=== PATIENT | female | born 1955 | race Caucasian/White ===

== ENCOUNTER 2019-01-24 21:11 | Emergency (ER) | payer SELFPAY ==
[2019-01-24 22:01] LABS: Absolute Monocytes 0.4 K/uL (0.1-1.3); Absolute Neutrophil 3.3 K/uL (1.8-8.0); Basophils % 0.8 % (0-1.3); Eosinophils % 3.5 % (0-4.4); Hematocrit 45.5 % (36.0-45.0); MPV 8.4 fL (7.6-11.3); Monocytes % 5.5 % (3.3-12.3); RBC Red Blood Cell Count 4.88 M/uL (3.86-4.86)
[2019-01-24] MEDS ORDERED: LEVALBUTEROL 1.25 MG/3 ML NEB ONE (22:03)
[2019-01-24 22:07] LABS: Protime INR 0.92
--- NOTE | 2019-01-24 22:13 | RAD REPORT ---
EXAM DESCRIPTION: RAD - Chest Single View - 01/24/2019 10:07 pm CLINICAL HISTORY: DYSPNEA Chest pain. COMPARISON: Chest Single View dated 09/27/2017; Chest Single View dated 09/26/2017; Chest Single Vie w dated 04/03/2017; CHEST SINGLE VIEW dated 04/26/2013 FINDINGS: Portable technique limits examination quality. The lungs are grossly clear. The heart is normal in size. No displaced fractures. IMPRESSION: No acute intrathoracic process suspected.
[2019-01-24 22:30] LABS: ALT/SGPT 108 U/L (12-78); AST/SGOT 132 U/L (15-37); Alkaline Phosphatase 102 U/L (45-117); BUN Blood Urea Nitrogen 11 mg/dL (7-18); Bicarbonate 23 mmol/L (21-32); Bilirubin Direct 0.1 mg/dL (0-0.2); Bilirubin Total 0.4 mg/dL (0.2-1.0); Glucose Level 143 mg/dL (74-106); NT PRO-BNP 84 pg/mL (<125); Potassium 4.1 mmol/L (3.5-5.1); Protein, Total 7.2 g/dL (6.4-8.2); Sodium Level 143 mmol/L (136-145); Troponin (Emerg Dept Use Only) < 0.02 ng/mL (0.0-0.045)
[2019-01-24] MEDS ORDERED: LORazepam 2 MG/ML VIAL ONE (22:43)
[2019-01-24 22:50] LABS: Barbiturates NEGATIVE (NEGATIVE); Benzodiazepines NEGATIVE (NEGATIVE); Cocaine NEGATIVE (NEGATIVE); METHAMPHETAM NEGATIVE (NEGATIVE); Methadone NEGATIVE (NEGATIVE); Opiates NEGATIVE (NEGATIVE); Phencyclidine NEGATIVE (NEGATIVE); THC Cannibis NEGATIVE (NEGATIVE)
[2019-01-24] MEDS ORDERED: NICOTINE 21 MG/PAT TD ONE (23:40)
[2019-01-24 23:44] LABS: Urine Blood TRACE (NEG); Urine Glucose NEGATIVE (NEG); Urine Protein NEGATIVE (NEG); Urine Specific Gravity <1.005 (1.005-1.030); Urine pH 5.5 (5.0-7.0)
[2019-01-25] MEDS ORDERED: NA CHLORIDE 0.9% 1,000 ML ONE ×2 (00:21→01:15)
[2019-01-25] MEDS ORDERED: LORazepam 2 MG/ML VIAL ONE ×2 (00:21→04:30)
[2019-01-25] MEDS ORDERED: THIAMINE 200 MG/2 ML INJ ONE (01:15)
[2019-01-25] MEDS ORDERED: DIPHENHYDRAMINE 50 MG/ML VIAL ONE (01:15)
[2019-01-25] MEDS ORDERED: MULTIVITAMINS 10 ML VIAL (INJ) IV ONE (01:17)
[2019-01-25] MEDS ORDERED: FOLIC ACID 5 MG/ML VIAL ONE (01:18)
[2019-01-25] MEDS ORDERED: IBUPROFEN 400 MG TAB ONE (09:42)
[2019-01-25] MEDS ORDERED: IBUPROFEN 200 MG TAB PO ONE (09:43)
[2019-01-25] MEDS ORDERED: LORAZEPAM 1 MG TABLET ONE ×2 (10:18→19:54)
--- NOTE | 2019-01-25 10:45 | EKG ---
Test Date: 2019-01-24 Test Time: 21:38:50 Director [facility]: CAROLINE MEASUREMENT RESULTS: Intervals: Rate: 96 SC: 156 QRSD: 108 QT: 362 QTc: 457 Rodney: P: 77 SC: 156 QRS: 51 T: 28 INTERPRETIVE STATEMENTS: Normal sinus rhythm Low voltage QRS Cannot rule out Anterior infarct, age undetermined Abnormal ECG Compared to ECG 09/26/2017 17:24:52 Low QRS voltage now present Sinus tachycardia no longer present Ventricular premature complex(es) no longer present Myocardial infarct finding still present Electronically Signed On 01-25-19 10:43:31 CDT by Danielito Schneider
[2019-01-26] MEDS ORDERED: ONDANSETRON 4 MG/2 ML VIAL ONE (07:54)
[2019-01-26] MEDS ORDERED: IBUPROFEN 200 MG TAB PO ONE (07:55)
[2019-01-26] MEDS ORDERED: IBUPROFEN 400 MG TAB ONE (07:55)
--- NOTE | 2019-01-26 08:03 | EDPHYS ---
Physician Documentation [facility] Name: Liz Perez Age: 63 yrs Sex: Female : 1955 Arrival Date: 01/24/2019 Time: 21:13 Bed 17 Private MD: ED Physician Leonel Ureña HPI: 01/24 21:36 This 63 yrs old Female presents to ER via Ambulatory with complaints of rn Breathing Difficulty, Suicidal Ideation. 21:36 The patient has shortness of breath at rest, with light activity. Onset: The rn symptoms/episode began/occurred at an unknown time. Duration: The symptoms are intermittent. The patient's shortness of breath is aggravated by exertion. Associated signs and symptoms: Pertinent positives: This patient does not have any pertinent positive signs or symptoms associated with shortness of breath. Pertinent negatives: non-productive cough, productive cough, fever, hemoptysis. Severity of symptoms: At their worst the symptoms were mild in the emergency department the symptoms are unchanged. The patient has experienced similar episodes in the past. Reports here for 2 reasons, reports increased sob of COPD and "heart patient", also reports fired last week and having thoughts of hurting herself. Has attempted to harm herself in past, states if she had a gun and a bullet would shoot herself. Reports stopped all of her medication last week because of financial issues, and feels her heart pounding. . Historical: - Allergies: 01/25 10:05 No Known Allergies; jl7 - Home Meds: 01/24 21:36 Albuterol Inhl [Active]; atorvastatin 40 mg Oral tab 1 tab once daily [Active]; tl2 clopidogrel 75 mg Oral tab 1 tab once daily [Active]; lisinopril 20 mg Oral tab 1 tab once daily [Active]; metoprolol tartrate 50 mg Oral tab 1 tab 2 times per day [Active]; - PMHx: 21:36 COPD; Hypertension; DE; tl2 - Immunization history:: Adult Immunizations up to date. - Social history:: Smoking status: Patient uses tobacco products. - Ebola Screening: : No symptoms or risks identified at this time. - Family history:: not pertinent. - Hospitalizations: : No recent hospitalization is reported. ROS: 21:36 Constitutional: Negative for fever, chills, and weight loss, Eyes: Negative for injury, rn pain, redness, and discharge, Neck: Negative for injury, pain, and swelling, Cardiovascular: Negative for chest pain, palpitations, and edema, Respiratory: + sob Abdomen/GI: Negative for abdominal pain, nausea, vomiting, diarrhea, and constipation, MS/Extremity: Negative for injury and deformity, Skin: Negative for injury, rash, and discoloration, Neuro: Negative for headache, weakness, numbness, tingling, and seizure. Exam: 21:36 Constitutional: This is a well developed, well nourished patient who is awake, alert, rn tearful Head/Face: Normocephalic, atraumatic. Eyes: tearful ENT: MMM, no stridor Cardiovascular: tachycardic, regular, no murmur Respiratory: + mild tachypnea, faint wheezing, no retractions, also crying during exam Skin: Warm, dry MS/ Extremity: Pulses equal, no cyanosis. Neurovascular intact. Full, normal range of motion. Neuro: Awake and alert, GCS 15, oriented to person, place, time, and situation. Motor strength 5/5 in all extremities. Sensory grossly intact. Cerebellar exam normal. Vital Signs: 21:36 BP 157 / 113; Pulse 127; Resp 26; Temp 98.2(O); Pulse Ox 94% on R/A; Weight 79.38 kg; tl2 Height 5 ft. 5 in. (165.10 cm); Pain 6/10; 21:55 BP 153 / 87; Pulse 97; Resp 22; Pulse Ox 97% on R/A; mt 22:08 BP 131 / 85; Pulse 94; Resp 20; Pulse Ox 100% on Nebulizer Mask; mt 03/21 00:28 BP 129 / 85; Pulse 102; Resp 20; Pulse Ox 95% on R/A; mt 04:15 BP 152 / 79; Pulse 101; Resp 17 S; Pulse Ox 97% on R/A; Pain 0/10; jd3 07:00 BP 149 / 73; Pulse 99; Resp 18; Temp 97.8(TE); Pulse Ox 98% on R/A; mh5 11:42 BP 134 / 76; Pulse 84; Resp 18; Temp 98.1(O); Pulse Ox 96% on R/A; mh5 15:57 BP 159 / 74; Pulse 102; Resp 20; Temp 98.5(O); Pulse Ox 97% on R/A; mh5 20:15 BP 134 / 73; Pulse 89; Resp 19; Pulse Ox 99% on R/A; mt 01/26 00:22 BP 179 / 84; Pulse 92; Resp 18; Pulse Ox 99% on R/A; mt 04:37 BP 157 / 93; Pulse 82; Resp 16; Pulse Ox 97% on R/A; tl2 07:29 BP 160 / 93; Pulse 90; Resp 16; Temp 98.3; Pulse Ox 96% ; Pain 0/10; sv 10:25 BP 160 / 87; Pulse 90; Resp 16; Temp 97.9; Pulse Ox 96% ; sv 01/24 21:36 Body Mass Index 29.12 (79.38 kg, 165.10 cm) tl2 MDM: 01/24 21:19 Patient medically screened. rn 01/25 02:31 ED course: Plan is going to ultimately be [facility] evaluation and likely transfer rn given patient adamant about hurting herself. States "its going to happen". 07:30 Data reviewed: vital signs, nurses notes, lab test result(s). ED course: The patient is kdr sleeping comfortably at this time. Has not required any intervention. Will redraw ETOH at 8:30 and hopefully be able to proceed with disposition at that time. 08:36 ED course: The patient is currently awake and alert. She does not remember coming to kdr the hospital or being suicidal with a plan to shoot herself. She had stated to the prior practitioner that she would harm herself if discharged. She currently is not as resolute about self harm. She has two sons, once from ETOH and the other reportedly in denial about his drinking problem. She recently lost her job and has multiple issues with daily living that are causing her to be more depressed than usual and she is not on any anti-depressant medication. 19:01 ED course: The patient continues to be stable in the ED. She was given Ativan PO once kdr during the shift but was otherwise not requiring intervention . ED course: When [facility] evaluated the patient, she indicated that her only way out of her current situation was to harm herself. 01/24 21:35 Order name: CBC with Diff; Complete Time: 22:19 rn 01/24 21:35 Order name: Basic Metabolic Panel; Complete Time: 22:37 rn 01/24 21:35 Order name: N-Terminal Pro-brain Natriuretic Peptide; Complete Time: 22:37 rn 01/24 21:35 Order name: Troponin (emerg Dept Use Only); Complete Time: 22:37 rn 01/24 21:35 Order name: Acetaminophen; Complete Time: 22:37 01/24 21:35 Order name: ETOH Level; Complete Time: 22:37 01/24 21:35 Order name: Hepatic Function; Complete Time: 22:37 rn 01/24 21:35 Order name: PT-INR; Complete Time: 22:19 rn 01/24 21:35 Order name: Ptt, Activated; Complete Time: 22:19 rn 01/24 21:35 Order name: Salicylate; Complete Time: 22:37 01/24 21:35 Order name: Urine Drug Screen; Complete Time: 22:59 01/24 23:14 Order name: Urine Dipstick--Ancillary (enter results); Complete Time: 23:49 [facility] 01/25 04:28 Order name: ETOH Level: draw at 0530; Complete Time: 06:29 rn 01/25 07:22 Order name: ETOH Level: Redraw in 2 hours; Complete Time: 19:41 [facility] 01/24 21:35 Order name: XRAY Chest (1 view); Complete Time: 22:19 01/25 10:24 Order name: ETOH Level; Complete Time: 19:41 01/24 21:35 Order name: IV Start; Complete Time: 21:56 01/24 21:35 Order name: EKG; Complete Time: 21:35 01/24 21:35 Order name: EKG - Nurse/Tech; Complete Time: 21:55 01/24 21:35 Order name: Labs collected and sent; Complete Time: 21:55 01/24 21:35 Order name: Urine Dipstick-Ancillary (obtain specimen); Complete Time: 00:31 01/25 07:17 Order name: Diet Regular; Complete Time: 07:17 5 01/25 10:34 Order name: Diet Regular; Complete Time: 10:34 5 01/25 15:48 Order name: Diet Regular; Complete Time: 15:49 5 Administered Medications: 01/24 22:16 Drug: Xopenex (3) 1.25 mg Route: Inhalation; jd3 01/25 07:00 Follow up: Response: No adverse reaction jl7 01/24 22:37 Drug: Ativan 1 mg Route: IVP; Site: right wrist; tl2 23:33 Follow up: Response: No adverse reaction jd3 23:32 Drug: Nicoderm CQ 21 mg/24 hr 21 mg {Note: right upper arm.} Route: Transdermal; Site: jd3 affected area; 01/25 07:00 Follow up: Response: No adverse reaction jl7 00:16 Drug: NS 0.9% 1000 ml Route: IV; Rate: 1000 ml; Site: right forearm; jd3 01:57 Follow up: Response: No adverse reaction; IV Status: Completed infusion; IV Intake: jd3 1000ml 00:16 Drug: Ativan 1 mg Route: IVP; Site: right forearm; jd3 01:57 Follow up: Response: No adverse reaction jd3 01:22 Drug: Benadryl 50 mg Route: IVP; Site: right forearm; jd3 02:20 Follow up: Response: No adverse reaction jd3 01:23 Drug: Banana Bag - (NS 0.9% 1000 ml, foLIC Acid 1 mg, Thiamine 100 mg, Multivitamin 1 jd3 amp) Route: IV; Rate: calculated rate; Site: right forearm; 06:56 Follow up: Response: No adverse reaction; IV Status: Completed infusion jd3 04:32 Drug: Ativan 1 mg Route: IVP; Site: right forearm; jd3 05:30 Follow up: Response: No adverse reaction jd3 09:44 Drug: Motrin 600 mg Route: PO; jl7 10:40 Follow up: Response: No adverse reaction jl7 10:09 Drug: Ativan 1 mg Route: PO; jl7 11:00 Follow up: Response: No adverse reaction jl7 19:46 Drug: Ativan 1 mg Route: PO; tl2 01/26 08:00 Drug: Zofran 4 mg Route: IVP; Site: right forearm; sv 08:53 Follow up: Response: No adverse reaction; Nausea is decreased sv 08:53 Drug: Motrin 600 mg Route: PO; sv 09:30 Follow up: Response: No adverse reaction sv 10:36 Drug: Tylenol 650 mg Route: PO; sv 10:36 Drug: Lisinopril 20 mg Route: PO; sv 10:36 Drug: Metoprolol TARTRATE (Lopressor) 50 mg Route: PO; sv Disposition: 01/26/19 08:00 Transfer ordered to Psych Facility. Diagnosis are Suicidal ideations, Major depressive disorder, recurrent, Tobacco abuse counseling, Alcohol abuse with intoxication - resolved. - Reason for transfer: Higher level of care. - Accepting physician is to psych. - Condition is Stable. - Problem is new. - Symptoms have improved. Signatures: Dispatcher [employer] Yasemin Steele RN RN sv Anderson, Corey, MD MD cha Rittger, Kevin, MD MD kdr Williams, Irene RN RN iw Mike Hubbard MD MD rn Knox, Taylor, RN RN tl2 Michaelle Mckeon RN RN jl7 Bridger Mckenzie RN RN jd3 Corrections: (The following items were deleted from the chart) 09:01 08:00 01/26/2019 08:00 Transfer ordered to Psych Facility. Diagnosis is Suicidal elisa ideations; Bipolar disorder. Reason for transfer: Higher level of care. Accepting physician is to psych. Condition is Stable. Problem is new. Symptoms have improved. elisa 09:03 09:01 01/26/2019 08:00 Transfer ordered to Psych Facility. Diagnosis is Suicidal elisa ideations; Major depressive disorder, recurrent. Reason for transfer: Higher level of care. Accepting physician is to psych. Condition is Stable. Problem is new. Symptoms have improved. elisa 11:33 09:03 01/26/2019 08:00 Transfer ordered to Psych Facility. Diagnosis is Suicidal iw ideations; Major depressive disorder, recurrent; Tobacco abuse counseling; Alcohol abuse with intoxication - resolved. Reason for transfer: Higher level of care. Accepting physician is to psych. Condition is Stable. Problem is new. Symptoms have improved. elisa
--- NOTE | 2019-01-26 08:03 | ER ---
Nurse's Notes [facility] Name: Liz Perez Age: 63 yrs Sex: Female : 1955 Arrival Date: 01/24/2019 Time: 21:13 Bed 17 Private MD: Diagnosis: Suicidal ideations;Major depressive disorder, recurrent;Tobacco abuse counseling;Alcohol abuse with intoxication-resolved Presentation: 01/24 21:33 Presenting complaint: Patient states: PT is very anxious and stressed, states she was tl2 fired from her job over a week ago. She came here because she states "I know I'm going to , I just don't know how." Reports previous thoughts of suicide and previous attempts. Pt is crying in triage. Transition of care: patient was not received from another setting of care. Onset of symptoms was January 15, 2019. Risk Assessment: Do you want to hurt yourself or someone else? Patient reports desire/thoughts of hurting themselves or someone else. Provider notified. Initial Sepsis Screen: Does the patient meet any 2 criteria? No. Patient's initial sepsis screen is negative. Does the patient have a suspected source of infection? No. Patient's initial sepsis screen is negative. Care prior to arrival: None. 21:33 Method Of Arrival: Ambulatory tl2 21:33 Acuity: MICHELET 2 tl2 Triage Assessment: 21:36 General: Appears distressed, uncomfortable, Behavior is agitated, crying. Pain: tl2 Complains of pain in right shoulder. Respiratory: Reports shortness of breath at rest Onset: The symptoms/episode began/occurred today, the patient has mild shortness of breath. Historical: - Allergies: 01/25 10:05 No Known Allergies; jl7 - Home Meds: 01/24 21:36 Albuterol Inhl [Active]; atorvastatin 40 mg Oral tab 1 tab once daily [Active]; tl2 clopidogrel 75 mg Oral tab 1 tab once daily [Active]; lisinopril 20 mg Oral tab 1 tab once daily [Active]; metoprolol tartrate 50 mg Oral tab 1 tab 2 times per day [Active]; - PMHx: 21:36 COPD; Hypertension; KS; tl2 - Immunization history:: Adult Immunizations up to date. - Social history:: Smoking status: Patient uses tobacco products. - Ebola Screening: : No symptoms or risks identified at this time. - Family history:: not pertinent. - Hospitalizations: : No recent hospitalization is reported. Screenin:37 Abuse screen: Denies threats or abuse. Nutritional screening: No deficits noted. tl2 Tuberculosis screening: No symptoms or risk factors identified. Fall Risk Gait- Weak (10 pts.). Assessment: 21:35 General: Appears uncomfortable, Behavior is anxious, crying, inappropriate for age, jd3 restless. Pain: Denies pain. Neuro: Level of Consciousness is awake, alert, confused, Oriented to person, place. Cardiovascular: Heart tones present Capillary refill < 3 seconds Patient's skin is warm and dry. Rhythm is regular. Respiratory: Reports shortness of breath Airway is patent Respiratory effort is even, unlabored, Respiratory pattern is regular, symmetrical, Breath sounds are clear bilaterally. GI: No signs and/or symptoms were reported involving the gastrointestinal system. : No signs and/or symptoms were reported regarding the genitourinary system. EENT: No signs and/or symptoms were reported regarding the EENT system. Derm: Skin is intact, Skin is dry, Skin is normal, Skin temperature is warm. Musculoskeletal: Circulation, motion, and sensation intact. Range of motion: intact in all extremities. 22:30 Reassessment: Patient appears in no apparent distress at this time. Patient and/or jd3 family updated on plan of care and expected duration. Pain level reassessed. Patient states feeling better. 23:00 Reassessment: Patient appears in no apparent distress at this time. No changes from jd3 previously documented assessment. Patient and/or family updated on plan of care and expected duration. Pain level reassessed. 01/25 00:00 Reassessment: Patient appears in no apparent distress at this time. No changes from jd3 previously documented assessment. Patient and/or family updated on plan of care and expected duration. Pain level reassessed. 01:00 Reassessment: Patient appears in no apparent distress at this time. No changes from jd3 previously documented assessment. Patient and/or family updated on plan of care and expected duration. Pain level reassessed. provider at bedside discussing plan of care. 02:00 Reassessment: Patient appears in no apparent distress at this time. No changes from jd3 previously documented assessment. Patient and/or family updated on plan of care and expected duration. Pain level reassessed. pt assisted into a recliner chair. 03:00 Reassessment: Patient appears in no apparent distress at this time. Patient and/or jd3 family updated on plan of care and expected duration. Pain level reassessed. pt resting in recliner chair with eyes closed, even and unlabored respirations, no signs of distress noted at this time. 04:00 Reassessment: Patient appears in no apparent distress at this time. No changes from jd3 previously documented assessment. Patient and/or family updated on plan of care and expected duration. Pain level reassessed. 04:30 Reassessment: Patient appears in no apparent distress at this time. Patient and/or jd3 family updated on plan of care and expected duration. Pain level reassessed. pt with anxiety, moved from chair to bed with assistance, provider notified, new orders received. 05:00 Reassessment: Patient appears in no apparent distress at this time. Patient and/or jd3 family updated on plan of care and expected duration. Pain level reassessed. pt resting in bed with eyes closed, even and unlabored respirations, no distress noted at this time. 06:00 Reassessment: Patient appears in no apparent distress at this time. Patient and/or jd3 family updated on plan of care and expected duration. Pain level reassessed. pt sitting in bed eating fruit cup. 07:00 Reassessment: Patient appears in no apparent distress at this time. Patient and/or jd3 family updated on plan of care and expected duration. Pain level reassessed. pt resting in bed with eyes closed, even and unlabored respirations, no distress noted at this time. 07:15 Reassessment: Pt laying in bed with eyes closed, respirations even and unlabored, no jl7 signs of distress noted at this time. 08:25 Reassessment: Dr. Hammer at bedside discussing plan of care. jl7 09:30 Reassessment: Patient appears in no apparent distress at this time. Patient and/or jl7 family updated on plan of care and expected duration. Pain level reassessed. Pt c/o back pain, rated 6/10, ERP notified, see MAR for orders. 10:10 Reassessment: Pt with mild tremors noted, requesting something for anxiety, ERD jl7 notified, see MAR for orders. 11:30 Reassessment: Patient appears in no apparent distress at this time. Patient and/or jl7 family updated on plan of care and expected duration. Pain level reassessed. Patient is alert, oriented x 3, equal unlabored respirations, skin warm/dry/pink. Patient states symptoms have improved. 12:30 Reassessment: Patient appears in no apparent distress at this time. No changes from jl7 previously documented assessment. Patient and/or family updated on plan of care and expected duration. Pain level reassessed. Patient is alert, oriented x 3, equal unlabored respirations, skin warm/dry/pink. 13:30 Reassessment: Patient appears in no apparent distress at this time. Patient and/or jl7 family updated on plan of care and expected duration. Pain level reassessed. Patient is alert, oriented x 3, equal unlabored respirations, skin warm/dry/pink. 14:30 Reassessment: Patient appears in no apparent distress at this time. Patient and/or jl7 family updated on plan of care and expected duration. Pain level reassessed. Patient is alert, oriented x 3, equal unlabored respirations, skin warm/dry/pink. 15:30 Reassessment: Patient appears in no apparent distress at this time. Patient and/or jl7 family updated on plan of care and expected duration. Pain level reassessed. Patient is alert, oriented x 3, equal unlabored respirations, skin warm/dry/pink. 19:35 General: Appears in no apparent distress. comfortable, Behavior is cooperative, tl2 anxious, restless. Pain: Denies pain. Neuro: Level of Consciousness is awake, alert. 19:35 General: pt reports feeling "extremely anxious" MD notified, new order see MAR. tl2 Cardiovascular: Denies chest pain. Respiratory: Airway is patent Respiratory effort is even, unlabored, Respiratory pattern is regular, symmetrical. : No signs and/or symptoms were reported regarding the genitourinary system. Derm: Skin temperature is warm. 20:30 Reassessment: Patient appears in no apparent distress at this time. Patient and/or tl2 family updated on plan of care and expected duration. Pain level reassessed. 21:30 Reassessment: Patient appears in no apparent distress at this time. Patient is alert, tl2 oriented x 3, equal unlabored respirations, skin warm/dry/pink. 23:30 Reassessment: Patient appears in no apparent distress at this time. Patient and/or tl2 family updated on plan of care and expected duration. Pain level reassessed. 01/26 00:30 Reassessment: Patient appears in no apparent distress at this time. Patient is alert, tl2 oriented x 3, equal unlabored respirations, skin warm/dry/pink. 01:00 Reassessment: Patient appears in no apparent distress at this time. Patient and/or tl2 family updated on plan of care and expected duration. Pain level reassessed. 02:00 Reassessment: Patient appears in no apparent distress at this time. pt appears to be tl2 sleeping, RR even and unlabored. 03:00 Reassessment: Patient appears in no apparent distress at this time. Patient and/or tl2 family updated on plan of care and expected duration. Pain level reassessed. 04:36 Reassessment: Pt able to perform own ADLs, is ambulatory without assist. ea 05:30 Reassessment: Patient appears in no apparent distress at this time. Patient and/or tl2 family updated on plan of care and expected duration. Pain level reassessed. 06:44 Reassessment: Patient appears in no apparent distress at this time. Patient and/or tl2 family updated on plan of care and expected duration. Pain level reassessed. awaiting breakfast tray. 07:33 General: Appears in no apparent distress. comfortable, Behavior is calm, cooperative, sv appropriate for age. Pain: Denies pain. Neuro: Level of Consciousness is awake, alert, obeys commands, Oriented to person, place, time, situation, Moves all extremities. Full function Speech is normal. Respiratory: Airway is patent Respiratory effort is even, unlabored, Respiratory pattern is regular, symmetrical. Derm: Skin is pink, warm \\T\\ dry. 09:27 Reassessment: Patient appears in no apparent distress at this time. Patient and/or sv family updated on plan of care and expected duration. Pain level reassessed. Patient is alert, oriented x 3, equal unlabored respirations, skin warm/dry/pink. Pt appears to be resting with eyes closed, no distress noted. 10:27 Reassessment: Report given to Ricarda at [facility]. sv 11:25 Reassessment: Patient appears in no apparent distress at this time. No changes from sv previously documented assessment. Patient and/or family updated on plan of care and expected duration. Pain level reassessed. Patient is alert, oriented x 3, equal unlabored respirations, skin warm/dry/pink. Psych: 01/24 21:37 Subjective: Patient's mood is sad, hopeless, Delusions are denied, Hallucinations are tl2 denied Having thoughts of suicide. Plan for suicide is states if she had a gun with a bullet that would work. Objective: Patient is hostile, irritable, restless, Speech is rambling, Affect is appropriate. Interventions: Removed personal items and placed in bag. Patient placed in hospital gown. Suicide Risk Assessment: Sad Person Scale: Sex of patient: Female: Score 0 points. Age of patient: Score 0 point if patient falls outside of specified age parameters. Depression: Score 1 point if signs of depression are present. Previous Attempt: Score 1 point if patient has previously attempted suicide. Substance Abuse: Score 1 point if patient abuses alcohol or drugs. Rational Thinking: Score 1 point if patient is lacking rational thinking. Social Support: Score 1 point if social support is lacking and/or unavailable. Organized Plan: Score 1 point if patient had a plan in place. Relationship: Score 1 point if patient is , , , or for a single male Chronic Sickness: Score 1 point if patient has illness, chronic, debilitating, or severe. TOTAL POINTS: If total points are 7-10, the proposed clinical action is to hospitalize or commit. Implement suicide precautions. Safety Checks: Personal items have been removed. Door is open. No visitors are present at this time. Patient uses. Vital Signs: 21:36 BP 157 / 113; Pulse 127; Resp 26; Temp 98.2(O); Pulse Ox 94% on R/A; Weight 79.38 kg; tl2 Height 5 ft. 5 in. (165.10 cm); Pain 6/10; 21:55 BP 153 / 87; Pulse 97; Resp 22; Pulse Ox 97% on R/A; mt 22:08 BP 131 / 85; Pulse 94; Resp 20; Pulse Ox 100% on Nebulizer Mask; mt 01/25 00:28 BP 129 / 85; Pulse 102; Resp 20; Pulse Ox 95% on R/A; mt 04:15 BP 152 / 79; Pulse 101; Resp 17 S; Pulse Ox 97% on R/A; Pain 0/10; jd3 07:00 BP 149 / 73; Pulse 99; Resp 18; Temp 97.8(TE); Pulse Ox 98% on R/A; mh5 11:42 BP 134 / 76; Pulse 84; Resp 18; Temp 98.1(O); Pulse Ox 96% on R/A; mh5 15:57 BP 159 / 74; Pulse 102; Resp 20; Temp 98.5(O); Pulse Ox 97% on R/A; mh5 20:15 BP 134 / 73; Pulse 89; Resp 19; Pulse Ox 99% on R/A; mt 01/26 00:22 BP 179 / 84; Pulse 92; Resp 18; Pulse Ox 99% on R/A; mt 04:37 BP 157 / 93; Pulse 82; Resp 16; Pulse Ox 97% on R/A; tl2 07:29 BP 160 / 93; Pulse 90; Resp 16; Temp 98.3; Pulse Ox 96% ; Pain 0/10; sv 10:25 BP 160 / 87; Pulse 90; Resp 16; Temp 97.9; Pulse Ox 96% ; sv 03 21:36 Body Mass Index 29.12 (79.38 kg, 165.10 cm) tl2 ED Course: 01/24 21:13 Patient arrived in ED. ds1 21:19 Mike Hubbard MD is Attending Physician. rn 21:35 Triage completed. tl2 21:36 Arm band placed on right wrist. tl2 21:37 Patient has correct armband on for positive identification. Bed in low position. Call tl2 light in reach. Side rails up X2. 21:45 Safety checks: Items removed: yes. Door open/sign placed on door: yes. Family/friend mt present: no. Sitter present: Yes. 22:00 Safety checks: Items removed: yes. Door open/sign placed on door: yes. Family/friend mt present: no. Sitter present: Yes. 22:05 XRAY Chest (1 view) In Process Unspecified. EDMS 22:15 Safety checks: Items removed: yes. Door open/sign placed on door: yes. Family/friend mt present: no. Sitter present: Yes. 22:16 Bridger Mckenzie RN is Primary Nurse. jd3 22:30 Safety checks: Items removed: yes. Door open/sign placed on door: yes. Family/friend mt present: no. Sitter present: Yes. 22:45 Safety checks: Items removed: yes. Door open/sign placed on door: yes. Family/friend mt present: no. Sitter present: Yes. 23:00 Safety checks: Items removed: yes. Door open/sign placed on door: yes. Family/friend mt present: no. Sitter present: Yes. 23:15 Safety checks: Items removed: yes. Door open/sign placed on door: yes. Family/friend mt present: no. Sitter present: Yes. 23:30 Safety checks: Items removed: yes. Door open/sign placed on door: yes. Family/friend mt present: no. Sitter present: Yes. 23:45 Safety checks: Items removed: yes. Door open/sign placed on door: yes. Family/friend mt present: no. Sitter present: Yes. 01/25 00:00 Safety checks: Items removed: yes. Door open/sign placed on door: yes. Family/friend mt present: no. Sitter present: Yes. 00:15 Safety checks: Items removed: yes. Door open/sign placed on door: yes. Family/friend mt present: no. Sitter present: Yes. 00:30 Safety checks: Items removed: yes. Door open/sign placed on door: yes. Family/friend mt present: no. Sitter present: Yes. 03:18 Safety checks: Items removed: yes. Door open/sign placed on door: Patient placed in ag4 hallway bed. Family/friend present: no. Sitter present: Yes. Patient has correct armband on for positive identification. 03:59 Safety checks: Items removed: yes. Door open/sign placed on door: Patient placed in ag4 hallway bed. Family/friend present: no. Sitter present: Yes. 04:37 Safety checks: Items removed: yes. Door open/sign placed on door: Patient placed in ag4 hallway bed. Family/friend present: no. Sitter present: Yes. 04:45 Safety checks: Items removed: yes. Door open/sign placed on door: Patient placed in ag4 hallway bed. Family/friend present: no. Sitter present: Yes. 04:58 Safety checks: Items removed: yes. Door open/sign placed on door: Patient placed in ag4 hallway bed. Family/friend present: no. Sitter present: Yes. 05:17 Safety checks: Items removed: yes. Door open/sign placed on door: Patient placed in ag4 hallway bed. Sitter present: Yes. 05:38 Safety checks: Items removed: yes. Door open/sign placed on door: Patient placed in ag4 hallway bed. Family/friend present: no. Sitter present: Yes. 07:00 Safety checks: Items removed: yes. Door open/sign placed on door: yes. Family/friend mh5 present: no. Sitter present: Yes. 07:15 Safety checks: Items removed: yes. Door open/sign placed on door: yes. Family/friend mh5 present: no. Sitter present: Yes. 07:18 Attending Physician role handed off by Mike Hubbard MD kdr 07:18 Israel Hammer MD is Attending Physician. kdr 07:18 Warm blanket given. Pillow given. mh5 07:30 Safety checks: Items removed: yes. Door open/sign placed on door: yes. Family/friend mh5 present: no. Sitter present: Yes. 07:45 Safety checks: Items removed: yes. Door open/sign placed on door: yes. Family/friend mh5 present: no. Sitter present: Yes. 08:00 Safety checks: Items removed: yes. Door open/sign placed on door: yes. Family/friend mh5 present: no. Sitter present: Yes. 08:15 Safety checks: Items removed: yes. Door open/sign placed on door: yes. Family/friend mh5 present: no. Sitter present: Yes. 08:23 Primary Nurse role handed off by Bridger Mckenzie RN jl7 08:23 Michaelle Mckeon RN is Primary Nurse. jl7 08:30 Safety checks: Items removed: yes. Door open/sign placed on door: yes. Family/friend mh5 present: no. Sitter present: Yes. 08:45 Safety checks: Items removed: yes. Door open/sign placed on door: yes. Family/friend mh5 present: no. Sitter present: Yes. 09:00 Safety checks: Items removed: yes. Door open/sign placed on door: yes. Family/friend mh5 present: no. Sitter present: Yes. 09:05 Diet: Patient given a regular meal tray. mh5 09:15 Safety checks: Items removed: yes. Door open/sign placed on door: yes. Family/friend mh5 present: no. Sitter present: Yes. 09:30 Safety checks: Items removed: yes. Door open/sign placed on door: yes. Family/friend mh5 present: no. Sitter present: Yes. 09:45 Safety checks: Items removed: yes. Door open/sign placed on door: yes. Family/friend mh5 present: no. Sitter present: Yes. 10:00 Safety checks: Items removed: yes. Door open/sign placed on door: yes. Family/friend mh5 present: no. Sitter present: Yes. 10:15 Safety checks: Items removed: yes. Door open/sign placed on door: yes. Family/friend mh5 present: no. Sitter present: Yes. 10:30 Safety checks: Items removed: yes. Door open/sign placed on door: yes. Family/friend mh5 present: no. Sitter present: Yes. 10:45 Safety checks: Items removed: yes. Door open/sign placed on door: yes. Family/friend mh5 present: no. Sitter present: Yes. Safety checks: Items removed:. Safety checks: Items removed:. 11:00 Safety checks: Items removed: yes. Door open/sign placed on door: yes. Family/friend mh5 present: no. Sitter present: Yes. 11:15 Safety checks: Items removed: yes. Door open/sign placed on door: yes. Family/friend mh5 present: no. Sitter present: Yes. 11:30 Safety checks: Items removed: yes. Door open/sign placed on door: yes. Family/friend mh5 present: no. Sitter present: Yes. 11:38 ETOH Level Sent. mh5 11:45 Safety checks: Items removed: yes. Door open/sign placed on door: yes. Family/friend mh5 present: no. Sitter present: Yes. 12:00 Safety checks: Items removed: yes. Door open/sign placed on door: yes. Family/friend mh5 present: no. Sitter present: Yes. 12:15 Safety checks: Items removed: yes. Door open/sign placed on door: yes. Family/friend mh5 present: no. Sitter present: Yes. 12:19 01/25/2019 SPOKE WITH [facility] FOR PT PSYCH CONSULT \\T\\ 1210PM. kj1 12:30 Safety checks: Items removed: yes. Door open/sign placed on door: yes. Family/friend mh5 present: no. Sitter present: Yes. 12:30 Diet tray given. jp3 12:45 Safety checks: Items removed: yes. Door open/sign placed on door: yes. Family/friend jp3 present: no. Sitter present: Yes. Oral care given. 12:52 Ofelia from [facility] spoke with Pt. jp3 13:00 Safety checks: Items removed: yes. Door open/sign placed on door: yes. Family/friend jp3 present: no. Sitter present: Yes. 13:15 Safety checks: Items removed: yes. Door open/sign placed on door: yes. Family/friend mh5 present: no. Sitter present: Yes. 13:30 Safety checks: Items removed: yes. Door open/sign placed on door: no. Family/friend mh5 present: no. Sitter present: Yes. 13:42 ATTEMPT TO COORDINATE PT TRANSFER FAXED PT RECORDS TO FOLLOWING FACILITIES ; [facility], [facility], [facility], [facility], [facility] , [facility] , [facility]. 13:45 Safety checks: Items removed: yes. Door open/sign placed on door: yes. Family/friend mh5 present: no. Sitter present: Yes. 14:00 Safety checks: Items removed: yes. Safety checks: Items removed: yes. Door open/sign mh5 placed on door: yes. Family/friend present: no. Sitter present: Yes. 14:15 Safety checks: Items removed: yes. Door open/sign placed on door: yes. Family/friend mh5 present: no. Sitter present: Yes. 14:30 Safety checks: Items removed: yes. Door open/sign placed on door: yes. Family/friend mh5 present: no. Sitter present: Yes. 14:45 Safety checks: Items removed: yes. Door open/sign placed on door: yes. Family/friend mh5 present: no. Sitter present: Yes. 15:00 Safety checks: Items removed: yes. Door open/sign placed on door: yes. Family/friend mh5 present: no. Sitter present: Yes. 15:15 Safety checks: Items removed: yes. Door open/sign placed on door: yes. Family/friend mh5 present: no. Sitter present: Yes. 15:30 Safety checks: Items removed: yes. Door open/sign placed on door: yes. Family/friend mh5 present: no. Sitter present: Yes. 15:45 Safety checks: Items removed: yes. Door open/sign placed on door: yes. Family/friend mh5 present: no. Sitter present: Yes. 16:00 Safety checks: Items removed: yes. Door open/sign placed on door: yes. Family/friend mh5 present: no. Sitter present: Yes. 16:15 Safety checks: Items removed: yes. Door open/sign placed on door: yes. Family/friend mh5 present: no. Sitter present: Yes. 16:18 Diet: Patient given snack. mh5 16:30 Safety checks: Items removed: yes. Door open/sign placed on door: yes. Family/friend mh5 present: no. Sitter present: Yes. 16:45 Safety checks: Items removed: yes. Door open/sign placed on door: yes. Family/friend mh5 present: no. Sitter present: Yes. 17:00 Safety checks: Items removed: yes. Door open/sign placed on door: yes. Family/friend mh5 present: no. Sitter present: Yes. 17:15 Safety checks: Items removed: yes. Door open/sign placed on door: yes. Family/friend mh5 present: no. Sitter present: Yes. 17:19 Diet: Patient given a regular meal tray. mh5 17:30 Safety checks: Items removed: yes. Door open/sign placed on door: yes. Family/friend mh5 present: no. Sitter present: Yes. 17:45 Safety checks: Items removed: yes. Door open/sign placed on door: yes. Family/friend mh5 present: no. Sitter present: Yes. 18:00 Safety checks: Items removed: yes. Door open/sign placed on door: yes. Family/friend mh5 present: no. Sitter present: Yes. 18:15 Safety checks: Items removed: yes. Door open/sign placed on door: no. Family/friend jp3 present: no. Sitter present: Yes. 18:30 Safety checks: Items removed: yes. Door open/sign placed on door: yes. Family/friend mh5 present: no. Sitter present: Yes. 18:45 Safety checks: Items removed: yes. Door open/sign placed on door: no. jp3 19:00 Safety checks: Items removed: yes. Door open/sign placed on door: yes. Family/friend mh5 present: no. Sitter present: Yes. 19:15 Safety checks: Items removed: yes. Door open/sign placed on door: yes. Family/friend mt present: no. Sitter present: Yes. 19:30 Safety checks: Items removed: yes. Door open/sign placed on door: yes. Family/friend mt present: no. Sitter present: Yes. 19:41 Attending Physician role handed off by Israel Hammer MD rn 19:41 Mike Hubbard MD is Attending Physician. rn 19:45 Safety checks: Items removed: yes. Door open/sign placed on door: yes. Family/friend mt present: no. Sitter present: Yes. 20:00 Safety checks: Items removed: yes. Door open/sign placed on door: yes. Family/friend mt present: no. Sitter present: Yes. 20:15 Safety checks: Items removed: yes. Door open/sign placed on door: yes. Family/friend mt present: no. Sitter present: Yes. 20:30 Safety checks: Items removed: yes. Door open/sign placed on door: yes. Family/friend mt present: no. Sitter present: Yes. 20:45 Safety checks: Items removed: yes. Door open/sign placed on door: yes. Family/friend mt present: no. Sitter present: Yes. 21:00 Safety checks: Items removed: yes. Door open/sign placed on door: yes. Family/friend mt present: no. Sitter present: Yes. 21:15 Safety checks: Items removed: yes. Door open/sign placed on door: yes. Family/friend mt present: no. Sitter present: Yes. 21:30 Safety checks: Items removed: yes. Door open/sign placed on door: yes. Family/friend mt present: no. Sitter present: Yes. 21:45 Safety checks: Items removed: yes. Door open/sign placed on door: yes. Family/friend mt present: no. Sitter present: Yes. 22:00 Safety checks: Items removed: yes. Door open/sign placed on door: yes. Family/friend mt present: no. Sitter present: Yes. 22:15 Safety checks: Items removed: yes. Door open/sign placed on door: yes. Family/friend mt present: no. Sitter present: Yes. 22:30 Safety checks: Items removed: yes. Door open/sign placed on door: yes. Family/friend mt present: no. Sitter present: Yes. :45 Safety checks: Items removed: yes. Door open/sign placed on door: yes. Family/friend mt present: no. Sitter present: Yes. 23:00 Safety checks: Items removed: yes. Door open/sign placed on door: yes. Family/friend mt present: no. Sitter present: Yes. 23:15 Safety checks: Items removed: yes. Door open/sign placed on door: yes. Family/friend mt present: no. Sitter present: Yes. 23:30 Safety checks: Items removed: yes. Door open/sign placed on door: yes. Family/friend mt present: no. Sitter present: Yes. :45 Safety checks: Items removed: yes. Door open/sign placed on door: yes. Family/friend mt present: no. Sitter present: Yes. 01/26 00:00 Safety checks: Items removed: yes. Door open/sign placed on door: yes. Family/friend mt present: no. Sitter present: Yes. 00:15 Safety checks: Items removed: yes. Door open/sign placed on door: yes. Family/friend mt present: no. Sitter present: Yes. 00:30 Safety checks: Items removed: yes. Door open/sign placed on door: yes. Family/friend mt present: no. Sitter present: Yes. 00:45 Safety checks: Items removed: yes. Door open/sign placed on door: yes. Family/friend mt present: no. Sitter present: Yes. 01:00 Safety checks: Items removed: yes. Door open/sign placed on door: yes. Family/friend mt present: no. Sitter present: Yes. 01:15 Safety checks: Items removed: yes. Door open/sign placed on door: yes. Family/friend mt present: no. Sitter present: Yes. 01:30 Safety checks: Items removed: yes. Door open/sign placed on door: yes. Family/friend mt present: no. Sitter present: Yes. 01:45 Safety checks: Items removed: yes. Door open/sign placed on door: yes. Family/friend mt present: no. Sitter present: Yes. 02:00 Safety checks: Items removed: yes. Door open/sign placed on door: yes. Family/friend mt present: no. Sitter present: Yes. 02:15 Safety checks: Items removed: yes. Door open/sign placed on door: yes. Family/friend mt present: no. Sitter present: Yes. 02:30 Safety checks: Items removed: yes. Door open/sign placed on door: yes. Family/friend mt present: no. Sitter present: Yes. 02:45 Safety checks: Items removed: yes. Door open/sign placed on door: yes. Family/friend mt present: no. Sitter present: Yes. 03:00 Safety checks: Items removed: yes. Door open/sign placed on door: yes. Family/friend mt present: no. Sitter present: Yes. 03:15 Safety checks: Items removed: yes. Door open/sign placed on door: yes. Family/friend mt present: no. Sitter present: Yes. 03:30 Safety checks: Items removed: yes. Door open/sign placed on door: yes. Family/friend mt present: no. Sitter present: Yes. 03:45 Safety checks: Items removed: yes. Door open/sign placed on door: yes. Family/friend mt present: no. Sitter present: Yes. 04:00 Safety checks: Items removed: yes. Door open/sign placed on door: yes. Family/friend mt present: no. Sitter present: Yes. 04:15 Safety checks: Items removed: yes. Door open/sign placed on door: yes. Family/friend mt present: no. Sitter present: Yes. 04:30 Safety checks: Items removed: yes. Door open/sign placed on door: yes. Family/friend mt present: no. Sitter present: Yes. 04:45 Safety checks: Items removed: yes. Door open/sign placed on door: yes. Family/friend mt present: no. Sitter present: Yes. 05:00 Safety checks: Items removed: yes. Door open/sign placed on door: yes. Family/friend mt present: no. Sitter present: Yes. 05:15 Safety checks: Items removed: yes. Door open/sign placed on door: yes. Family/friend mt present: no. Sitter present: Yes. 05:30 Safety checks: Items removed: yes. Door open/sign placed on door: yes. Family/friend mt present: no. Sitter present: Yes. 05:45 Safety checks: Items removed: yes. Door open/sign placed on door: yes. Family/friend mt present: no. Sitter present: Yes. 06:00 Safety checks: Items removed: yes. Door open/sign placed on door: yes. Family/friend mt present: no. Sitter present: Yes. 06:15 Safety checks: Items removed: yes. Door open/sign placed on door: yes. Family/friend mt present: no. Sitter present: Yes. 06:30 Safety checks: Items removed: yes. Door open/sign placed on door: yes. Family/friend mt present: no. Sitter present: Yes. 06:59 Report given to Theresa CARRILLO. sv 07:00 Safety checks: Items removed: yes. Door open/sign placed on door: yes. Family/friend em1 present: no. Sitter present: Yes. 07:02 Primary Nurse role handed off by Michaelle Mckeon RN sv 07:02 Yasemin Irvin RN is Primary Nurse. sv 07:15 Safety checks: Items removed: yes. Door open/sign placed on door: yes. Family/friend em1 present: no. Sitter present: Yes. 07:30 Safety checks: Items removed: yes. Door open/sign placed on door: yes. Family/friend em1 present: no. Sitter present: Yes. 07:33 refaxed patient records to the following facilities in the attempt to transfer patient eb ; [facility]; [facility]; [facility]; [facility]; [facility]; [facility]; [facility]; [facility]; [facility], [facility]; [facility]; [facility]. 07:35 Assisted to bedside commode. em1 07:38 CALLED BUDDHIST SPOKE WITH CHRISTIANO VALERIO [id number] TO INITATE TRANSFER. [facility] 07:45 Safety checks: Items removed: yes. Door open/sign placed on door: yes. Family/friend em1 present: no. Sitter present: Yes. 07:48 FAXED CHART AND BUDDHIST EXCULSIONER FORM TO TRY AND SECURE PLACEMENT \\T\\750 AM [facility] 01/26/2019. 07:58 Attending Physician role handed off by Mike Hubbard MD [facility] 07:58 Leonel Ureña MD is Attending Physician. [facility] 08:00 Safety checks: Items removed: yes. Door open/sign placed on door: yes. Family/friend em1 present: no. Sitter present: Yes. 08:15 Safety checks: Items removed: yes. Door open/sign placed on door: yes. Family/friend em1 present: no. Sitter present: Yes. 08:30 Safety checks: Items removed: yes. Door open/sign placed on door: yes. Family/friend em1 present: no. Sitter present: Yes. Diet tray given. 08:45 Safety checks: Items removed: yes. Door open/sign placed on door: yes. Family/friend em1 present: no. Sitter present: Yes. 08:56 BUDDHIST TRANSFER COORIDINATOR CHRISTIANO CALLED TO STATE SHE PAGED FOR TRANSFER TO [facility] FACILITY \\T\\[id number] WILL CALL BACK TO FACILITATE TRANSFER WHEN SHE HEARS FROM 09:01 Safety checks: Items removed: yes. Door open/sign placed on door: yes. Family/friend em1 present: no. Sitter present: Yes. 09:15 SAP SPECIALIST CALL TO SPEAK WITH DR. UREÑA TO COORDINATE TRANSFER TO BUDDHIST \\T\\[id number]. [facility] 09:15 Safety checks: Items removed: yes. Door open/sign placed on door: yes. Family/friend em1 present: no. Sitter present: Yes. 09:[address] MORENO TO SECURE APPROVAL \\T\\[id number] ,CHRISTIANO VALERIO WITH [facility] BUDDHIST WILL CALL BACK WITH BED AND REPORT TO TRANSFER. 09:31 Safety checks: Items removed: yes. Door open/sign placed on door: yes. Family/friend em1 present: no. Sitter present: Yes. 09:45 Safety checks: Items removed: yes. Door open/sign placed on door: yes. Family/friend em1 present: yes. Family/friends encouraged to stay with patient. Sitter present: Yes. 10:00 Safety checks: Items removed: yes. Door open/sign placed on door: yes. Family/friend em1 present: yes. Family/friends encouraged to stay with patient. Sitter present: Yes. 10:15 Safety checks: Items removed: yes. Door open/sign placed on door: yes. Family/friend em1 present: yes. Family/friends encouraged to stay with patient. Sitter present: Yes. 10:30 Safety checks: Items removed: yes. Door open/sign placed on door: yes. Family/friend em1 present: yes. Family/friends encouraged to stay with patient. Sitter present: Yes. 10:45 Safety checks: Items removed: yes. Door open/sign placed on door: yes. Family/friend em1 present: yes. Family/friends encouraged to stay with patient. Sitter present: No. 11:25 No provider procedures requiring assistance completed. IV discontinued, intact, sv bleeding controlled, No redness/swelling at site. Pressure dressing applied. Administered Medications: 01/24 22:16 Drug: Xopenex (3) 1.25 mg Route: Inhalation; [facility] 01/25 07:00 Follow up: Response: No adverse reaction [facility] 01/24 22:37 Drug: Ativan 1 mg Route: IVP; Site: right wrist; tl2 23:33 Follow up: Response: No adverse reaction jd3 23:32 Drug: Nicoderm CQ 21 mg/24 hr 21 mg {Note: right upper arm.} Route: Transdermal; Site: jd3 affected area; 01/25 07:00 Follow up: Response: No adverse reaction jl7 00:16 Drug: NS 0.9% 1000 ml Route: IV; Rate: 1000 ml; Site: right forearm; jd3 01:57 Follow up: Response: No adverse reaction; IV Status: Completed infusion; IV Intake: jd3 1000ml 00:16 Drug: Ativan 1 mg Route: IVP; Site: right forearm; jd3 01:57 Follow up: Response: No adverse reaction jd3 01:22 Drug: Benadryl 50 mg Route: IVP; Site: right forearm; jd3 02:20 Follow up: Response: No adverse reaction jd3 01:23 Drug: Banana Bag - (NS 0.9% 1000 ml, foLIC Acid 1 mg, Thiamine 100 mg, Multivitamin 1 jd3 amp) Route: IV; Rate: calculated rate; Site: right forearm; 06:56 Follow up: Response: No adverse reaction; IV Status: Completed infusion jd3 04:32 Drug: Ativan 1 mg Route: IVP; Site: right forearm; jd3 05:30 Follow up: Response: No adverse reaction jd3 09:44 Drug: Motrin 600 mg Route: PO; jl7 10:40 Follow up: Response: No adverse reaction jl7 10:09 Drug: Ativan 1 mg Route: PO; jl7 11:00 Follow up: Response: No adverse reaction jl7 19:46 Drug: Ativan 1 mg Route: PO; tl2 03 08:00 Drug: Zofran 4 mg Route: IVP; Site: right forearm; sv 08:53 Follow up: Response: No adverse reaction; Nausea is decreased sv 08:53 Drug: Motrin 600 mg Route: PO; sv 09:30 Follow up: Response: No adverse reaction sv 10:36 Drug: Tylenol 650 mg Route: PO; sv 10:36 Drug: Lisinopril 20 mg Route: PO; sv 10:36 Drug: Metoprolol TARTRATE (Lopressor) 50 mg Route: PO; sv Intake: 03 01:57 IV: 1000ml; Total: 1000ml. jd3 Outcome: 01/26 08:00 ER care complete, transfer ordered by . [facility] 11:25 Transferred by ground EMS to [facility], Transfer form completed. Note: sv Report given to Mine from EMS 11:25 Condition: stable 11:25 Instructed on the need for transfer. 11:33 Patient left the ED. iw Signatures: Dispatcher [employer] EDMS Yasemin Irvin RN RN sv Anderson, Corey, MD MD cha Rittger, Kevin, MD MD kdr Sanford, Demi ds1 Pamela Madrid RN RN iw Mike Hubbard MD MD rn Martinez, Eric em1 Theresa Knight RN RN tl2 Amarilis Kay [facility] Michaelle Mckeon RN RN jl7 Elaine Jaimes id Josefa Jalloh RN RN ea Davies, Jonathon RN RN jd3 Smiley Ann Jacob jp3 Patrick Valadez ag4 Felicity Rodriguez kj1 Corrections: (The following items were deleted from the chart) 01/25 14:06 11:42 BP 134 / ???; Pulse 84bpm; Resp 18bpm; Pulse Ox 96% RA; Temp 98.1F Oral; mh5 mh5 14:06 11:42 BP 134 / 78; Pulse 84bpm; Resp 18bpm; Pulse Ox 96% RA; Temp 98.1F Oral; mh5 mh5 19:52 19:35 General: Appears in no apparent distress. comfortable, Behavior is calm, tl2 cooperative, tl2 01/26 07:38 07:21 Safety checks: Items removed: yes. Door open/sign placed on door: yes. em1 Family/friend present: no. Sitter present: Yes. em1 07:38 07:34 Safety checks: Items removed: yes. Door open/sign placed on door: yes. em1 Family/friend present: no. Sitter present: Yes. em1 10:18 10:02 Safety checks: Items removed: yes. Door open/sign placed on door: yes. em1 Family/friend present: yes. Family/friends encouraged to stay with patient. Sitter present: Yes. em1 10:53 10:51 Safety checks: Items removed: yes. Door open/sign placed on door: yes. em1 Family/friend present: yes. Family/friends encouraged to stay with patient. Sitter present: No. em1
[2019-01-26] MEDS ORDERED: ACETAMINOPHEN 325 MG TABLET ONE (10:43)
[2019-01-26] MEDS ORDERED: METOPROLOL TAR 50 MG TAB ONE (10:43)
[2019-01-26] MEDS ORDERED: LISINOPRIL 20 MG TAB ONE (10:43)
[2019-01-26 13:03] VITALS: O2SAT 96
[2019-01-26 13:04] VITALS: BP 160/87; TEMP 97.9
== END 2019-01-26 11:33 ==
LOC: ER 21:11
DX: R45.851 Suicidal ideations (principal); F33.9 Major depressive disorder, recurrent, unspecified; Z71.6 Tobacco abuse counseling; F17.200 Nicotine dependence, unspecified, uncomplicated; F10.129 Alcohol abuse with intoxication, unspecified; R06.02 Shortness of breath; J44.9 Chronic obstructive pulmonary disease, unspecified; I10 Essential (primary) hypertension; I25.2 Old myocardial infarction
CPT/HCPCS: 36415; 71045; 80048; 80076; 80307; 80320; 80329; 81003; 83880; 84484; 85025; 85610; 85730; 93005; 99285; J2405; J3411; J7030